=== PATIENT | female | born 1940 | race Caucasian/White ===

== ENCOUNTER 2018-04-22 20:56 | Emergency (ER) | payer MEDICARE ==
[~2018-04-22] VITALS: Ht 154.9 cm; Wt 72.6 kg
== END 2018-04-22 22:04 | disposition home or self-care (01) ==
LOC: ER 20:56
DX: M25.531 Pain in right wrist (principal); M25.562 Pain in left knee; W01.0XXA Fall on same level from slipping, tripping and stumbling without subsequent striking against object, initial encounter; Z88.8 Allergy status to other drugs, medicaments and biological substances
CPT/HCPCS: 99283

== ENCOUNTER 2022-08-08 21:09 | Inpatient (IN) | payer MEDICARE ==
[~2022-08-08] VITALS: Ht 162.6 cm; Wt 69.7 kg
[~2022-08-08 21:09] MED LIST: DULERA 100 MCG/13 GM INH; EUTHYROX125 MCG PO; MONT5TCH; TIOT18 INH
[2022-08-08] MEDS ORDERED: TRAZ50 PO (21:25)
[2022-08-08] MEDS ORDERED: ATEN25 PO (21:25)
[2022-08-08 21:29] LABS: BASOPHILS ABSOLUTE AUTO 0.06 K/mm3 (0.00-0.23); BASOPHILS PERCENT AUTO 0 % (0-2); EOSINOPHILS ABSOLUTE AUTO 0.09 K/mm3 (0.00-0.68); EOSINOPHILS PERCENT AUTO 1 % (0-6); Hematocrit 42.6 % (33.0-51.0); Hemoglobin 13.7 g/dL (11.5-16.0); IMMATURE GRAN ABSOLUTE AUTO 0.05 K/mm3 (0.00-0.10); IMMATURE GRAN PERCENT AUTO 0 % (0-1); LYMPHOCYTES ABSOLUTE AUTO 2.94 K/mm3 (0.84-5.20); LYMPHOCYTES PERCENT AUTO 21 % (21-46); MONOCYTES ABSOLUTE AUTO 0.65 K/mm3 (0.16-1.47); MONOCYTES PERCENT AUTO 5 % (4-13); Mean Corpuscular HGB 28.9 pg (26.0-34.0); Mean Corpuscular HGB Conc 32.2 g/dL (31.5-36.5); Mean Corpuscular Volume 90 fL (80-100); Mean Platelet Volume 9.5 fL (9.1-12.4); NEUTROPHILS ABSOLUTE AUTO 10.23 K/mm3 (1.96-9.15); NEUTROPHILS PERCENT AUTO 73 % (41-73); Platelet Count 282 K/mm3 (150-400); RDW Coefficient Variation 14.6 % (11.7-14.2); RDW Standard Deviation 47.8 fL (35.1-46.3); Red Blood Cell Count 4.74 M/mm3 (3.80-5.20); White Blood Cell Count 14.02 K/mm3 (4.00-11.30)
[2022-08-08 21:41] LABS: Albumin, Blood 3.4 g/dL (3.4-5.0); Albumin/Globulin Ratio 1.1 (0.8-1.8); Bilirubin, Total 0.4 mg/dL (0.1-1.0); Calcium, Blood 8.6 mg/dL (8.5-10.1); Creatinine, Blood 0.49 mg/dL (0.40-1.00); Globulin, Blood 3.2 g/dL (2.2-4.0); Total Protein, Blood 6.6 g/dL (6.4-8.2)
[2022-08-08 22:07] LABS: Influenza B, PCR NEGATIVE (NEGATIVE); Resp Syncytial Virus, PCR NEGATIVE (NEGATIVE); SARS-Cov-2 (COVID-19) PCR, MMC NEGATIVE (NEGATIVE)
[2022-08-08 22:10] LABS: Influenza A, PCR POSITIVE (NEGATIVE)
--- NOTE | 2022-08-09 04:21 | NUR ---
ADMIT NOTE; PT ARRIVED TO THE FLOOR @0235 VIA ED GURNEY, THE PT WAS ABLE TO PIVOT FROM THE ED GURNEY TO THE HOSPITAL BED WITH A 1 PERSON ASSIST. THE PT ARRIVED WITH A PUREWICK IN PLACE, A BAG OF NS AND WITH A NC IN HER NOSE. UPON ADMISSION THE PTS PUREWICK WAS CHANGED, THE PT WAS CONNECTED TO 4L O2 VIA NC TO MAINTAIN SATS GREATER THAN 92%. THE PT IS ALERT AND ORIENTATED. THE PT REPORTS HAVE A 6/10 PAIN IN RELATION TO A HEADACHE DUE TO COUGHING IN THE SETTING OF HER PRESENT ILLNESS. AT THIS TIME THE PT IS RESTING IN BED COMFORTABLY WITH NO FURTHER SIGNS OF SOB.
--- NOTE | 2022-08-09 04:59 | NUR ---
SHIFT SUMMARY; SINCE ARRIVAL THIS AM THERE HAS BEEN NO ACUTE CHANGES SEEN IN THE PT. THE PT REPORTED 6/10 PAIN IN RELATION TO A HEADACHE FOR WHICH SHE WAS MEDICATED FOR WITH TYLENOL. PT DENIES ANY SOB AT THIS TIME. PT REMAINS ON 4L NC TO MAINTAIN O2 SATS GREATER THAN 92%. PT WITH PUREWICK DUE TO URINARY INCONTINENCE RELATED TO COUGHING. URINE SAMPLE STILL NEEDED. PT CURRENTLY SLEEPING WITH THE BED IN THE LOWEST POSITION AND THE CALL LIGHT AT BEDSIDE.
[2022-08-09 07:13] LABS: BASOPHILS ABSOLUTE AUTO 0.03 K/mm3 (0.00-0.23); BASOPHILS PERCENT AUTO 0 % (0-2); EOSINOPHILS PERCENT AUTO 0 % (0-6); Hematocrit 38.6 % (33.0-51.0); Hemoglobin 12.4 g/dL (11.5-16.0); IMMATURE GRAN ABSOLUTE AUTO 0.08 K/mm3 (0.00-0.10); IMMATURE GRAN PERCENT AUTO 1 % (0-1); LYMPHOCYTES ABSOLUTE AUTO 1.55 K/mm3 (0.84-5.20); LYMPHOCYTES PERCENT AUTO 9 % (21-46); MONOCYTES ABSOLUTE AUTO 0.55 K/mm3 (0.16-1.47); MONOCYTES PERCENT AUTO 3 % (4-13); Mean Corpuscular HGB 28.8 pg (26.0-34.0); Mean Corpuscular HGB Conc 32.1 g/dL (31.5-36.5); Mean Corpuscular Volume 90 fL (80-100); Mean Platelet Volume 9.2 fL (9.1-12.4); NEUTROPHILS ABSOLUTE AUTO 14.76 K/mm3 (1.96-9.15); NEUTROPHILS PERCENT AUTO 87 % (41-73); Platelet Count 255 K/mm3 (150-400); RDW Coefficient Variation 14.7 % (11.7-14.2); RDW Standard Deviation 48.5 fL (35.1-46.3); White Blood Cell Count 16.97 K/mm3 (4.00-11.30)
[2022-08-09 07:37] LABS: Bilirubin, Total 0.3 mg/dL (0.1-1.0); Bun/Creatinine Ratio 27.2 (12.0-20.0); Calcium, Blood 8.1 mg/dL (8.5-10.1); Creatinine, Blood 0.59 mg/dL (0.40-1.00); Potassium, Blood 4.3 mmol/L (3.5-5.5)
--- NOTE | 2022-08-09 16:39 | NUR ---
PT AOX4 AND COOPERATIVE OF CARE. PT CONTINUES TO HAVE COURSE, WHEEZING LUNGS THROUGHOUT. PT ON 4L NC AND IS COMFORTABLE. COUGH WAS TREATED PER EMAR. PT HAS CALL LIGHT WITHIN REACH AND GETS UP TO BEDSIDE COMMODE A ONE PERSON ASSIST. NO DISTRESS NOTED AT THIS TIME.
--- NOTE | 2022-08-10 04:14 | NUR ---
SHIFT SUMMARY; NO ACUTE MEDICAL CHANGES THIS SHIFT. PT DID TACH UP TO THE 110'S WHILE ABULATING TO THE BATHROOM. PT'S O2 SATS REMAIN STABLE ON 4L NC. PT REPORTS PAIN AND A HEADACHE IN RELATION TO COUGHING, PT MEDICATED WITH TYLENOL WHICH PROVIDES GOOD RELIEF. PT CONTINUES TO HAVE A PRODUCTIVE COUGH. PT WAS ABLE TO AMBULATE TO THE BSC ONCE LAST NIGHT WELL TO THE BATHROOM WITH A 1 ASSIT AND A FWW. PT CURRENTLY RESTING IN BED WITH THE BED IN THE LOWEST POSITION AND THE CALL LIGHT AT HER SIDE.
[2022-08-10 05:47] LABS: BASOPHILS ABSOLUTE AUTO 0.02 K/mm3 (0.00-0.23); BASOPHILS PERCENT AUTO 0 % (0-2); EOSINOPHILS PERCENT AUTO 0 % (0-6); Hematocrit 38.5 % (33.0-51.0); Hemoglobin 12.1 g/dL (11.5-16.0); IMMATURE GRAN PERCENT AUTO 1 % (0-1); LYMPHOCYTES ABSOLUTE AUTO 1.38 K/mm3 (0.84-5.20); LYMPHOCYTES PERCENT AUTO 8 % (21-46); MONOCYTES ABSOLUTE AUTO 0.37 K/mm3 (0.16-1.47); MONOCYTES PERCENT AUTO 2 % (4-13); Mean Corpuscular HGB 28.4 pg (26.0-34.0); Mean Corpuscular HGB Conc 31.4 g/dL (31.5-36.5); Mean Corpuscular Volume 90 fL (80-100); Mean Platelet Volume 9.6 fL (9.1-12.4); NEUTROPHILS ABSOLUTE AUTO 15.27 K/mm3 (1.96-9.15); NEUTROPHILS PERCENT AUTO 89 % (41-73); Platelet Count 264 K/mm3 (150-400); RDW Coefficient Variation 14.8 % (11.7-14.2); RDW Standard Deviation 49.5 fL (35.1-46.3); Red Blood Cell Count 4.26 M/mm3 (3.80-5.20); White Blood Cell Count 17.14 K/mm3 (4.00-11.30)
[2022-08-10 06:06] LABS: Bun/Creatinine Ratio 30.8 (12.0-20.0); Calcium, Blood 8.8 mg/dL (8.5-10.1); Creatinine, Blood 0.52 mg/dL (0.40-1.00); Potassium, Blood 4.4 mmol/L (3.5-5.5)
--- NOTE | 2022-08-10 16:54 | NUR ---
NO ACUTE CHANGES PT AOX4 AND STILL ON 4L O2 MAINTIANING MID 90s O2. PT RESTING IN BED MOST OF THE DAY AND UP TO BEDSIDE COMMODE. PT COUGHING, BUT DOES NOT SEEMS BAD HER PRIOR DAY. CALL LIGHT IS WITHIN REACH WILL CONTINUE TO MONITOR.
--- NOTE | 2022-08-10 19:32 | NUR ---
RECEIVED REPORT FROM DAYSHIFT RN. SITTING UP IN BED WATCHING TV. RESP EVEN ON 4L. CALL LT IN REACH.
--- NOTE | 2022-08-10 22:00 | NUR ---
PLEASANT AND COOPERATIVE WITH CARE. [place]. ON 4L VIA NC. A LITTLE SOB ALWAYS WITH HER COPD. OCCASIONAL MOIST COUGH. PT ENCOURAGE TO COUGH STRONG. DRINKING FLUIDS WELL. VOIDING TO BSC USING FWW. WILL CONTINUE TO PROVIDE CARE T/O SHIFT. CALL LT IN REACH.
--- NOTE | 2022-08-10 22:42 | NUR ---
NOTIFIED JUNIOR SALES ASSISTANT THAT PT DECLINED ANOTHER IV ACCESS, STATES, "PRETTY SURE I'M GOING HOME TOMORROW. IV ABX'S DISCONTINUED AND ORAL ANTIBIOTICS ORDERED. FIRST DOSE TO START TONIGHT. CURRENT IV ACCESS TENDER. PT PREFERS PILLS RATHER THAN IV.
--- NOTE | 2022-08-11 | NUR ---
PT RESTING QUIETLY. NO COUGHING NOTED. CALL LT IN REACH.
--- NOTE | 2022-08-11 02:00 | NUR ---
PT RESTING QUIETLY. NO ACUTE CHANGES. NO COUGHING NOTED. CALL LT IN REACH.
--- NOTE | 2022-08-11 04:10 | NUR ---
PT STATES HER HEADACHE IS MUCH BETTER. ADVIL GIVEN EARLIER. PT READING SOMETHING ON HER PHONE. NO NEEDS AT THIS TIME. CALL LT IN REACH.
--- NOTE | 2022-08-11 04:43 | NUR ---
SHIFT SUMMARY: A/O. ABLE TO STATE NEEDS APPROPRIATELY. CURRENTLY ON 4L VIA NC. PT STATES SHE IS ABLE TO BREATHE EASIER AND FEELS BETTER. PT HOPES TO BE DISCHARGED TODAY. HAS BEEN IN SINUS RHYTHM IN THE 70'S DURING THIS SHIFT. MEDICATED WITH TRAMADOL AND ADVIL FOR HEADACHE. GAVE COUGH SYRUP X 1. CURRENTLY SL. RFA FEELS TENDER WHEN FLUSHING PER PT. PT DID NOT WANT A SECOND IV PLACED LAST NIGHT SHE SAID I'M GOING HOME TOMORROW ANYWAYS AND DON'T TO BE POKED AGAIN. NOTIFIED THE HOSPITALIST WHO DISCONTINUED THE IV ANTIBIOTICS AND CHANGED THEM TO ORAL INSTEAD. PT TOLERATES TAKING PILLS. HAS BEEN USING FWW INDEPENDENTLY TO THE BSC WITHOUT DIFFICULTY. RESTED WELL. WILL CONTINUE TO PROVIDE CARE UNTIL SHIFT REPORT TO ONCOMING NURSE.
[2022-08-11 05:27] LABS: Calcium, Blood 8.9 mg/dL (8.5-10.1); Creatinine, Blood 0.45 mg/dL (0.40-1.00); Potassium, Blood 4.1 mmol/L (3.5-5.5)
--- NOTE | 2022-08-12 04:03 | NUR ---
SHIFT SUMMARY ADMITTED FOR PNEUMONIA/SEPSIS. FULL CODE. DROPLET PRECAUTIONS FOR FLU A. TELEMETRY: NSR @ 75 BPM. ON 4 LPM O2, RA AT HOME. REGULAR DIET. INDEPENDENT TO BSC. FROM [facility]. TAMIFLU GIVEN ACCORDING TO EMAR. MEDICATED FOR HEADACHE THIS SHIFT
[2022-08-12] MEDS ORDERED: GUAI600T33 PO (15:31)
[2022-08-12] MEDS ORDERED: PRED20 PO (15:32)
[2022-08-12] MEDS ORDERED: CEFD300 PO (15:32)
--- NOTE | 2022-08-12 17:24 | NUR ---
PATIENT DISCHARGED TO HOME. DAUGHTER AND SON IN LAW TAKE HER BACK TO [facility]. PATIENT AND DAUGHTER VERBALIZED DC INSTRUCTIONS. JASON BROUGHT PORTABLE O2 TANK. PATIENT LEAVES VIA WHEEL CHAIR TO LOBBY WITH FAMILY.
== END 2022-08-12 17:06 | disposition home or self-care (01) | DRG 871 ==
LOC: ER 21:09 → MEDS 21:10
PROVIDERS: Family Medicine; Internal Medicine; Student in an Organized Health Care Education/Training Program; ADMIT Internal Medicine
DX: A41.9 Sepsis, unspecified organism (principal); J10.08 Influenza due to other identified influenza virus with other specified pneumonia; J96.21 Acute and chronic respiratory failure with hypoxia; J15.9 Unspecified bacterial pneumonia; J44.1 Chronic obstructive pulmonary disease with (acute) exacerbation; J44.0 Chronic obstructive pulmonary disease with (acute) lower respiratory infection; I10 Essential (primary) hypertension; E03.9 Hypothyroidism, unspecified; Z96.651 Presence of right artificial knee joint; E86.0 Dehydration; Z88.8 Allergy status to other drugs, medicaments and biological substances; Z79.899 Other long term (current) drug therapy; Z86.711 Personal history of pulmonary embolism; Z87.891 Personal history of nicotine dependence; Z20.822 Contact with and (suspected) exposure to COVID-19
CPT/HCPCS: 0241U; 36415; 71045; 80048; 80053; 83605; 84145; 85025; 87040; 93005; 93010; 94640; 94664; 94760; 94762; 96361; 96365; 96372; 96375; 99285-25; A9270; G0378; J0456; J0696; J1650; J2405; J2930; J7030; J7050; J7120; J7512

== ENCOUNTER → 2023-02-27 | Outpatient (CLI) | payer MEDICARE ==
[~2023-02-27] MED LIST changes: +ATEN25 PO; +CEFD300 PO; +GUAI600T33 PO; +PRED20 PO; +TRAZ50 PO
[2023-02-27 13:04] LABS: BASOPHILS ABSOLUTE AUTO 0.05 K/mm3 (0.00-0.23); BASOPHILS PERCENT AUTO 1 % (0-2); EOSINOPHILS ABSOLUTE AUTO 0.37 K/mm3 (0.00-0.68); EOSINOPHILS PERCENT AUTO 4 % (0-6); Hemoglobin 14.3 g/dL (11.5-16.0); IMMATURE GRAN ABSOLUTE AUTO 0.06 K/mm3 (0.00-0.10); IMMATURE GRAN PERCENT AUTO 1 % (0-1); LYMPHOCYTES ABSOLUTE AUTO 1.86 K/mm3 (0.84-5.20); LYMPHOCYTES PERCENT AUTO 21 % (21-46); MONOCYTES ABSOLUTE AUTO 0.74 K/mm3 (0.16-1.47); MONOCYTES PERCENT AUTO 8 % (4-13); Mean Corpuscular HGB 29.4 pg (26.0-34.0); Mean Corpuscular HGB Conc 32.5 g/dL (31.5-36.5); Mean Corpuscular Volume 91 fL (80-100); Mean Platelet Volume 9.8 fL (9.1-12.4); NEUTROPHILS ABSOLUTE AUTO 5.99 K/mm3 (1.96-9.15); NEUTROPHILS PERCENT AUTO 66 % (41-73); Platelet Count 359 K/mm3 (150-400); RDW Coefficient Variation 17.4 % (11.7-14.2); Red Blood Cell Count 4.86 M/mm3 (3.80-5.20); White Blood Cell Count 9.07 K/mm3 (4.00-11.30)
[2023-02-27 13:24] LABS: Albumin, Blood 3.1 g/dL (3.4-5.0); Albumin/Globulin Ratio 0.9 (0.8-1.8); Bilirubin, Total 0.3 mg/dL (0.1-1.0); Bun/Creatinine Ratio 27.3 (12.0-20.0); Calcium, Blood 9.1 mg/dL (8.5-10.1); Creatinine, Blood 0.55 mg/dL (0.40-1.00); Globulin, Blood 3.4 g/dL (2.2-4.0); Magnesium, Blood 1.8 mg/dL (1.6-2.4); Potassium, Blood 3.8 mmol/L (3.5-5.5); Thyroid Stimulating Hormone 0.357 uIU/mL (0.360-4.800); Total Protein, Blood 6.5 g/dL (6.4-8.2)
== END | disposition home or self-care (01) ==
LOC: LAB SHORT 09:16 → LAB 09:16
PROVIDERS: Nurse Practitioner Family
DX: E03.9 Hypothyroidism, unspecified (principal); I10 Essential (primary) hypertension; R25.2 Cramp and spasm
CPT/HCPCS: 80053; 83735; 84443; 85025

== ENCOUNTER → 2023-05-15 | Outpatient (CLI) | payer MEDICARE | END | disposition home or self-care (01) | LOC: LAB 13:02 → LAB SHORT 13:02 | DX: M54.40 Lumbago with sciatica, unspecified side (principal); R30.0 Dysuria | CPT/HCPCS: 87086 ==

== ENCOUNTER → 2023-08-21 | Outpatient (CLI) | payer MEDICARE | END | disposition home or self-care (01) | LOC: LAB 18:09 → LAB SHORT 18:09 | DX: E03.9 Hypothyroidism, unspecified (principal) | CPT/HCPCS: 84443 ==

== ENCOUNTER → 2024-04-05 | Outpatient (CLI) | payer MEDICARE ==
[~2024-04-05] MED LIST changes: +CEFU500T30 PO; +DULERA 100 MCG-13 GM; +MECL25 PO; +TRAM50
== END | disposition home or self-care (01) ==
LOC: LAB SHORT 15:10 → LAB 15:10
DX: E03.9 Hypothyroidism, unspecified (principal)
CPT/HCPCS: 84443